=== PATIENT | female | born 1965 | race Caucasian/White ===

== ENCOUNTER 2017-10-08 06:50 | Day surgery (SDC) | payer BC ==
[~2017-10-08] VITALS: Ht 167.6 cm; Wt 99.8 kg
[~2017-10-08 06:50] MED LIST: DETROL LA4 MG PO; IBUPROFEN200 M1 PO; SYNTHROID112 MCG PO
--- NOTE | 2017-10-08 10:08 | NUR ---
10/08/17 Anais8 Ruth Ann Spencer 0946 PT ARRIVES TO PACU, RESTING BUT AROUSABLE TO VOICE. LR INFUSING TO RIGHT WRIST. PT DENIES PAIN. ABD SOFT, NON DISTENDED. PLACE ON ALL MONITORS. 0951 PT PLACED TO ROOM AIR DUE TO NAUSEA, MAINTAINING AT THIS TIME. 0958 PT MEDICATED WITH PHENERGAN FOR INCREASING NASUEA, ALCOHOL SWAB USED TO DECREASE NAUSEA. 1002 PT REPORTS NAUSEA IMPROVING, DENIES PAIN. BREATHING EVEN AND NON LABORED, PT COUGHING WITH DEEP BREATHIGN. PT PLACED ON 2L PER NC FOR SATS DOWN TO 88% WHILE RESTING. SATS UP 96% WITH O2.
--- NOTE | 2017-10-08 10:47 | NUR ---
COUGHING ON RETURN INC URINE UP TO BSC VOID 200MLS
--- NOTE | 2017-10-08 11:36 | OR ---
[facility] [address], [place] [address] Signed DATE OF OPERATION: 10/08/2017 SURGEON: Jarvis Medina MD PREOPERATIVE DIAGNOSIS: Incarcerated epigastric hernia. POSTOPERATIVE DIAGNOSIS: Incarcerated umbilical hernia (4 mm). PROCEDURE: Primary umbilical herniorrhaphy. ESTIMATED BLOOD LOSS: None. INDICATIONS: Maryuri is a 52-year-old female who came to see me for what we thought was going to be an epigastric hernia. She had a previous panniculectomy where they removed her redundant pannus and then pulled the skin down to her waistline to bring it together and of course they have to transpose the umbilicus further up the skin. She noticed a lump on the superior side of that umbilicus for about 3 years. She said the pain is usually about a 3/10 on a pain scale. She said it is sometime larger than others, but she did not feel like she could ever push it back inside. 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 In the office, we could feel this area just on the superior side of her umbilicus. Maryuri explained to me that there was no plication of her midline, which makes this a much easier surgery. I explained to Maryuri that she could very well have an epigastric hernia or umbilical hernia or both. We also discussed the blood supply to her umbilicus and we decided we would use a transverse incision that would include the superior scar of her previous umbilicus and hopefully we will preserve the blood flow to that umbilical skin. There is some risk that she could lose that skin. I did give her a [employer] brochure on hernias and we looked at both umbilical and epigastric hernias. We repaired them in the same manner. Usually, we use mesh, but if the hole is very small, we will often just use a few stitches. She understands the expected intraop and postop course. There is risk to that surgery including, but not limited to bleeding, infection, scarring, change in contour of the skin as well as possible ischemic loss of that umbilical skin. She had expressed understanding and wished to proceed. PROCEDURE NOTE: I met with Maryuri and her grandmother in our preop area. Maryuri was able to palpate Electronically Signed By: JARVIS MEDINA MD 10/08/17 1136 PATIENT NAME: MARYURI CARRENO OPERATIVE REPORT DATE OF : 63 REPORT #: [id number] PHYSICIAN: JARVIS MEDINA MD PCP: NO PRIMARY CARE PHYSICIAN REPORT IS CONFIDENTIAL AND NOT TO BE RELEASED WITHOUT AUTHORIZATION [facility] [address], [place] [address] Signed that area once again and we therefore marked it with the pin. After this, she was taken to the operating room and placed in the supine position under general anesthesia. She was given preoperative medication because of her history of nausea with anesthesia. We also gave her preoperative antibiotics along with subcutaneous heparin. In addition, SCDs were utilized. After this, she was prepped and draped in the usual sterile fashion. We then developed a transverse incision to include the superior scar of her previous umbilical surgery. We carried this down through the tissues bluntly and with the cautery. The surrounding fat was quite soft and indurated. We examined the area of the midline just above the umbilicus and it remained intact. However, we could feel a hard lump of indurated fat at the 12 to 1 o'clock position of her umbilicus. This is the area that Maryuri was pointing to in the office and in our preop area. I could feel at the base of the umbilicus, there was a small defect. Consequently, I went ahead and divided that with the cautery and sure enough there was a small hernia sac there with preperitoneal fat coming through a 4 mm fascial defect. I suspect that explains some of her pain. We went ahead and reduced that fat and we simply closed that small fascial defect transversely with a running #1 Prolene suture. That brought the fascia back together nicely and it is flat and will give her excellent cosmetic result. We left some of the indurated fat on the side of that umbilicus because of fear of interrupting the blood supply in the more than necessary. We used a 2-0 PDS suture to bring that umbilical skin back down to the midline. Local anesthetic was injected in the wound and the wound was irrigated and suctioned out until clear. The dermis was reapproximated with interrupted 3-0 Monocryl sutures. The skin edges were reapproximated with a running 6-0 fast absorbing plain gut suture. Dry gauze and tape were then applied. Maryuri was awakened from anesthesia, extubated in the OR, and taken to recovery room in stable condition. Jarvis Medina MD ALB/MODL /[id number] cc: AB Mccormack MD Patricia J Winn, MD Electronically Signed By: JARVIS MEDINA MD 10/08/17 1136 PATIENT NAME: MARYURI CARRENO OPERATIVE REPORT DATE OF : 63 REPORT #: [id number] PHYSICIAN: JARVIS MEDINA MD PCP: NO PRIMARY CARE PHYSICIAN REPORT IS CONFIDENTIAL AND NOT TO BE RELEASED WITHOUT AUTHORIZATION [facility] [address], [place] [address] Signed Copies: SUNIL EDOUARD ANDREW L MD WINN, PATRICIA J MD ~ Electronically Signed By: JARVIS MEDINA MD 10/08/17 1136 PATIENT NAME: MARYURI CARRENO OPERATIVE REPORT DATE OF : 63 REPORT #: [id number] PHYSICIAN: JARVIS MEDINA MD PCP: NO PRIMARY CARE PHYSICIAN REPORT IS CONFIDENTIAL AND NOT TO BE RELEASED WITHOUT AUTHORIZATION
== END 2017-10-08 12:15 | disposition home or self-care (01) ==
LOC: DS 06:50
PROVIDERS: Colon & Rectal Surgery
PROC: 0WQF0ZZ Repair Abdominal Wall, Open Approach (ICD-10-PCS; principal; 2017-10-08 08:15)
DX: K42.0 Umbilical hernia with obstruction, without gangrene (principal); E89.0 Postprocedural hypothyroidism; Z88.5 Allergy status to narcotic agent; Z88.8 Allergy status to other drugs, medicaments and biological substances; Z79.899 Other long term (current) drug therapy
CPT/HCPCS: 00750; J0131; J0330; J0690; J0735; J1100; J1644; J1885; J2250; J2405; J2550; J2704; J2765; J3010; J3475; J7120